=== PATIENT | female | born 1965 | race African-American/Black ===

== ENCOUNTER 2018-05-11 21:26 | Emergency (ER) | payer OTHER ==
[~2018-05-11] VITALS: Ht 172.7 cm; Wt 66.7 kg
[~2018-05-11 21:26] MED LIST: AMLO2.5T4 PO
[2018-05-11 21:30] VITALS: BP 139/96
[2018-05-11] MEDS ORDERED: BUPIVACAINE MPF W/EPI 0.25% 30 ML VIAL ONE (21:59)
== END 2018-05-11 22:23 | disposition home or self-care (01) ==
LOC: ER 21:32
DX: K08.89 Other specified disorders of teeth and supporting structures (principal); I10 Essential (primary) hypertension; Z79.899 Other long term (current) drug therapy
CPT/HCPCS: 64400; 99284; A4606; J3490